=== PATIENT | female | born 1965 | race Caucasian/White ===

== ENCOUNTER 2016-11-29 11:18 | Emergency (ER) | payer MEDICARE, MEDICAID ==
--- NOTE | 2016-11-30 15:40 | ER ---
ADMIT: 11/29/2016 RM/LOC: ER [facility] MR#: [id number] [address] [id number] NAVDEEP SHELTON [address] [id number] Emergency Room Report SEX: F AGE: 51 : 1965 DATE: 11/29/2016 For chief complaint, history of present illness, past medical history, medications, allergies, review of systems, including physical exam, please see my T-sheet. INTERIM HISTORY: The patient is a 51-year-old, white female, comes today with body aches, not feeling well, fever, and headache. It has been going on for about 9 days. She has had multiple people in her family that have been ill. Vital signs are stable. PHYSICAL EXAMINATION: Patient findings are consistent for sinusitis and URI. IMPRESSION: 1. Sinusitis. 2. Headache with upper respiratory tract infection. PLAN: The patient was given a prescription for Zithromax and prednisone. The patient was given, here in the Emergency Department, Toradol, Phenergan, and Decadron for her headache. Home, rest, activity as tolerated. Drink plenty of fluids. Follow up with Family Practice if symptoms or problems persist or worsen. The patient is in stable condition at discharge. NIYAH Boyle / Mathew Reno MD / modl JOB #: [id number] CC: Mathew Reno MD, Attending Physician Forrest Moya MD, Family Physician
== END 2016-11-29 12:35 | disposition home or self-care (01) ==
LOC: ER 11:18
DX: J32.9 Chronic sinusitis, unspecified (principal); R51 Headache; J06.9 Acute upper respiratory infection, unspecified; F17.210 Nicotine dependence, cigarettes, uncomplicated; Z88.5 Allergy status to narcotic agent; Z79.899 Other long term (current) drug therapy

== ENCOUNTER → 2016-12-16 | Outpatient (CLI) | payer MEDICARE, MEDICAID | END | disposition home or self-care (01) | LOC: RAD.S 08:57 | DX: R10.9 Unspecified abdominal pain (principal); R14.0 Abdominal distension (gaseous) ==

== ENCOUNTER → 2017-03-05 | Outpatient (CLI) | payer MEDICARE, MEDICAID | END | disposition home or self-care (01) | LOC: RAD.S 09:31 | DX: R10.9 Unspecified abdominal pain (principal); R14.0 Abdominal distension (gaseous); K76.0 Fatty (change of) liver, not elsewhere classified ==